=== PATIENT | female | born 1965 | race Caucasian/White ===

== ENCOUNTER 2018-09-07 09:50 | Inpatient (IN) ==
--- NOTE | 2018-09-07 10:29 | ED ---
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 Mother said she felt warm. She is hypotensive and was given NS IVF for EVAC. Has been having cough and cold like symptoms. Denies any fever, chest pain, sob, n/v, abdominal pain, new focal weakness or numbness. Pt sleeps in a recliner. Related Data Home Medications Medication Instructions Recorded Confirmed aripiprazole 5 mg PO DAILY 09/07/18 09/07/18 deutetrabenazine [Austedo] 12 mg PO BID 09/07/18 09/07/18 sertraline 100 mg PO BID 09/07/18 09/07/18 Allergies Allergy/AdvReac Type Severity Reaction Status Date / Time No Known Allergies Allergy Verified 09/07/18 10:17 Review of Systems ROS: all other systems reviewed are negative [facility] Social History Social History Substance History: No History of Abuse Second Hand Smoke Exposure: No Smoking Status: Never smoker How Often Do You Have a Drink Containing Alcohol: Never Recent Travel in [facility] within the Last 8 Weeks: No Recent Out of Country Travel within the Last 8 Weeks: No Immunization History Tetanus Immunization: Unsure Exam Narrative Exam Narrative: GENERAL: 53yo F in mild distress. SKIN: Focused skin assessment warm/dry. HEAD: Atraumatic. Normocephalic. EYES: Pupils equal and round. No scleral icterus. Left eye with injected conjuntiva. ENT: No nasal bleeding or discharge. Mucous membranes pink and moist. NECK: Trachea midline. No JVD. CARDIOVASCULAR: Regular rate and rhythm. No murmur appreciated. RESPIRATORY: No accessory muscle use. Clear to auscultation. Breath sounds equal bilaterally. GASTROINTESTINAL: Abdomen soft, non-tender, nondistended. MUSCULOSKELETAL: No obvious deformities. No clubbing. No cyanosis. No edema. NEUROLOGICAL: Awake and alert. No obvious cranial nerve deficits. Normal muscle strength bilateral upper extremities. Lower extremity strength limited by Merlin's, not new. Sensation equal bilaterally. Course Initial Documented Vital Signs Temperature 100.1 F H 09/07/18 10:17 Pulse Rate 83 11/10/18 10:17 Respiratory Rate 16 09/07/18 10:17 Blood Pressure 87/61 L 09/07/18 10:17 Pulse Oximetry 93 L 09/07/18 10:17 Last Documented Vital Signs Temperature 99.1 F 09/08/18 04:00 Pulse Rate 58 L 09/08/18 06:21 Respiratory Rate 22 09/08/18 06:21 Blood Pressure 100/62 09/08/18 06:21 Pulse Oximetry 96 09/08/18 06:21 Medical Decision Making MDM Narrative Medical decision making narrative: 53yo F with Merlin's disease here with generalized weakness and tactile fever. Axillary temp was 100.1F. Pt is hypotensive and sepsis work up initiated. Labs reviewed, leukocytosis at 18, 000. H/H normal. Lactic acid normal at 1.6. Magnesium normal. BMP unremarkable. UA showed no leukocyte. +Squamous cell. CXR negative. BP was low even after IVF by EVAC. After two more liters of IVF, pt improved to 95/ 58. Pt is feeling a little better now. However, BP is still lower than normal for her after 3 liters of IVF so will sent blood cultures and observe her overnight. Will empirically cover her with antibiotics and admit her for sepsis without source. Discussed with Dr. Liriano's PA and accepted to his service. Medical Screen Exam Complete: Yes Emergency Medical Condition: Yes Differential Diagnosis Differential Diagnosis: Sepsis vs. dehydration vs. pneumonia vs. UTI Lab Data Result diagrams: 09/08/18 05:31 09/08/18 05:31 Lab Results 09/07/18 09/07/18 09/07/18 Range/Units 10:30 10:30 10:30 CBC w Diff Auto diff final WBC 18.0 H (4.0-11.0) th/mm3 RBC 4.49 (4.00-5.30) mil/mm3 Hgb 12.6 (11.6-15.3) gm/dL Hct 38.2 (35.0-46.0) % MCV 85.0 (80.0-100.0) fL MCH 28.1 (27.0-34.0) pg MCHC 33.1 (32.0-36.0) % RDW 14.8 (11.6-17.2) % Plt Count 208 (150-450) th/mm3 MPV 8.9 (7.0-11.0) fL Neut % (Auto) 95.9 H (16.0-70.0) % Lymph % (Auto) 2.1 L (9.0-44.0) % [place] % (Auto) 1.0 (0.0-8.0) % Eos % (Auto) 0.3 (0.0-4.0) % Baso % (Auto) 0.7 (0.0-2.0) % Neut # (Auto) 17.2 H (1.8-7.7) th/mm3 Lymph # (Auto) 0.4 L (1.0-4.8) th/mm3 [place] # (Auto) 0.2 (0.0-0.9) th/mm3 Eos # (Auto) 0.1 (0.0-0.4) th/mm3 Baso # (Auto) 0.1 (0.0-0.2) th/mm3 WBC Differential . Differential Comment . PT 11.4 (9.8-11.6) sec INR 1.1 Ratio APTT 24.6 (23.4-31.7) sec Sodium 139 (136-145) meq/L Potassium 3.8 (3.5-5.1) meq/L Chloride 106 (98-107) meq/L Carbon Dioxide 24.3 (21.0-32.0) meq/L Anion Gap 9 (5-15) meq/L BUN 16 (7-18) mg/dL Creatinine 0.84 (0.50-1.00) mg/dL Estimated GFR 71 L (>89) mL/min Random Glucose 121 H (74-106) mg/dL Lactic Acid (0.4-2.0) mmol/L Calcium 8.2 L (8.5-10.1) mg/dL Magnesium 1.9 (1.5-2.5) mg/dL Total Bilirubin (0.2-1.0) mg/dL Direct Bilirubin (0.0-0.2) mg/dL Indirect Bilirubin (0.0-0.8) mg/dL AST (15-37) U/L ALT (10-53) U/L Alkaline Phosphatase (45-117) U/L Total Creatine Kinase (26-192) U/L Troponin I (0.02-0.05) ng/mL Total Protein (6.4-8.2) g/dL Albumin (3.4-5.0) g/dL Urine Color (Yellw/Straw) Urine Clarity (Clear) Urine pH (5.0-8.5) Ur Specific [place] (1.002-1.035) Urine Protein (Neg-Trace) mg/dL Urine Glucose (UA) (Negative) mg/dL Urine Ketones (Negative) mg/dL Urine Occult Blood (Negative) Urine Nitrate (Negative) Urine Bilirubin (Negative) Urine Urobilinogen (Less than 2) mg/dL Ur Leukocyte Esterase (Negative) Ur Squamous Epith Cells (0-5) /hpf Urine Mucus (Occasional) /lpf Micro UA Comment Ur Microscopic Review Urine Culture Comments 09/07/18 09/07/18 09/07/18 Range/Units 10:30 11:56 15:03 CBC w Diff WBC (4.0-11.0) th/mm3 RBC (4.00-5.30) mil/mm3 Hgb (11.6-15.3) gm/dL Hct (35.0-46.0) % MCV (80.0-100.0) fL MCH (27.0-34.0) pg MCHC (32.0-36.0) % RDW (11.6-17.2) % Plt Count (150-450) th/mm3 MPV (7.0-11.0) fL Neut % (Auto) (16.0-70.0) % Lymph % (Auto) (9.0-44.0) % [place] % (Auto) (0.0-8.0) % Eos % (Auto) (0.0-4.0) % Baso % (Auto) (0.0-2.0) % Neut # (Auto) (1.8-7.7) th/mm3 Lymph # (Auto) (1.0-4.8) th/mm3 [place] # (Auto) (0.0-0.9) th/mm3 Eos # (Auto) (0.0-0.4) th/mm3 Baso # (Auto) (0.0-0.2) th/mm3 WBC Differential Differential Comment PT (9.8-11.6) sec INR Ratio APTT (23.4-31.7) sec Sodium (136-145) meq/L Potassium (3.5-5.1) meq/L Chloride (98-107) meq/L Carbon Dioxide (21.0-32.0) meq/L Anion Gap (5-15) meq/L BUN (7-18) mg/dL Creatinine (0.50-1.00) mg/dL Estimated GFR (>89) mL/min Random Glucose (74-106) mg/dL Lactic Acid 1.6 (0.4-2.0) mmol/L Calcium (8.5-10.1) mg/dL Magnesium (1.5-2.5) mg/dL Total Bilirubin 0.6 (0.2-1.0) mg/dL Direct Bilirubin 0.1 (0.0-0.2) mg/dL Indirect Bilirubin 0.5 (0.0-0.8) mg/dL AST 8 L (15-37) U/L ALT 15 (10-53) U/L Alkaline Phosphatase 53 (45-117) U/L Total Creatine Kinase 31 (26-192) U/L Troponin I Less than 0.02 L (0.02-0.05) ng/mL Total Protein 6.2 L (6.4-8.2) g/dL Albumin 2.7 L (3.4-5.0) g/dL Urine Color Yellow (Yellw/Straw) Urine Clarity Slightly cloudy (Clear) Urine pH 6.0 (5.0-8.5) Ur Specific [place] 1.025 (1.002-1.035) Urine Protein Negative (Neg-Trace) mg/dL Urine Glucose (UA) Negative (Negative) mg/dL Urine Ketones Negative (Negative) mg/dL Urine Occult Blood Negative (Negative) Urine Nitrate Negative (Negative) Urine Bilirubin Negative (Negative) Urine Urobilinogen 0.2 (Less than 2) mg/dL Ur Leukocyte Esterase Negative (Negative) Ur Squamous Epith Cells 6-10 H (0-5) /hpf Urine Mucus Many H (Occasional) /lpf Micro UA Comment Culture not ind Ur Microscopic Review Microscopic reviewed Urine Culture Comments Culture not ind 09/07/18 09/08/18 09/08/18 Range/Units 20:35 02:15 05:31 CBC w Diff Auto diff final WBC 10.6 (4.0-11.0) th/mm3 RBC 3.91 L (4.00-5.30) mil/mm3 Hgb 10.9 L (11.6-15.3) gm/dL Hct 33.0 L (35.0-46.0) % MCV 84.6 (80.0-100.0) fL MCH 27.9 (27.0-34.0) pg MCHC 33.0 (32.0-36.0) % RDW 15.2 (11.6-17.2) % Plt Count 156 (150-450) th/mm3 MPV 8.7 (7.0-11.0) fL Neut % (Auto) 82.0 H (16.0-70.0) % Lymph % (Auto) 11.4 (9.0-44.0) % [place] % (Auto) 4.4 (0.0-8.0) % Eos % (Auto) 1.9 (0.0-4.0) % Baso % (Auto) 0.3 (0.0-2.0) % Neut # (Auto) 8.6 H (1.8-7.7) th/mm3 Lymph # (Auto) 1.2 (1.0-4.8) th/mm3 [place] # (Auto) 0.5 (0.0-0.9) th/mm3 Eos # (Auto) 0.2 (0.0-0.4) th/mm3 Baso # (Auto) 0.0 (0.0-0.2) th/mm3 WBC Differential . Differential Comment . PT (9.8-11.6) sec INR Ratio APTT (23.4-31.7) sec Sodium (136-145) meq/L Potassium (3.5-5.1) meq/L Chloride (98-107) meq/L Carbon Dioxide (21.0-32.0) meq/L Anion Gap (5-15) meq/L BUN (7-18) mg/dL Creatinine (0.50-1.00) mg/dL Estimated GFR (>89) mL/min Random Glucose (74-106) mg/dL Lactic Acid (0.4-2.0) mmol/L Calcium (8.5-10.1) mg/dL Magnesium (1.5-2.5) mg/dL Total Bilirubin (0.2-1.0) mg/dL Direct Bilirubin (0.0-0.2) mg/dL Indirect Bilirubin (0.0-0.8) mg/dL AST (15-37) U/L ALT (10-53) U/L Alkaline Phosphatase (45-117) U/L Total Creatine Kinase 39 42 (26-192) U/L Troponin I Less than 0.02 L Less than 0.02 L (0.02-0.05) ng/mL Total Protein (6.4-8.2) g/dL Albumin (3.4-5.0) g/dL Urine Color (Yellw/Straw) Urine Clarity (Clear) Urine pH (5.0-8.5) Ur Specific [place] (1.002-1.035) Urine Protein (Neg-Trace) mg/dL Urine Glucose (UA) (Negative) mg/dL Urine Ketones (Negative) mg/dL Urine Occult Blood (Negative) Urine Nitrate (Negative) Urine Bilirubin (Negative) Urine Urobilinogen (Less than 2) mg/dL Ur Leukocyte Esterase (Negative) Ur Squamous Epith Cells (0-5) /hpf Urine Mucus (Occasional) /lpf Micro UA Comment Ur Microscopic Review Urine Culture Comments 09/08/18 Range/Units 05:31 CBC w Diff WBC (4.0-11.0) th/mm3 RBC (4.00-5.30) mil/mm3 Hgb (11.6-15.3) gm/dL Hct (35.0-46.0) % MCV (80.0-100.0) fL MCH (27.0-34.0) pg MCHC (32.0-36.0) % RDW (11.6-17.2) % Plt Count (150-450) th/mm3 MPV (7.0-11.0) fL Neut % (Auto) (16.0-70.0) % Lymph % (Auto) (9.0-44.0) % [place] % (Auto) (0.0-8.0) % Eos % (Auto) (0.0-4.0) % Baso % (Auto) (0.0-2.0) % Neut # (Auto) (1.8-7.7) th/mm3 Lymph # (Auto) (1.0-4.8) th/mm3 [place] # (Auto) (0.0-0.9) th/mm3 Eos # (Auto) (0.0-0.4) th/mm3 Baso # (Auto) (0.0-0.2) th/mm3 WBC Differential Differential Comment PT (9.8-11.6) sec INR Ratio APTT (23.4-31.7) sec Sodium 142 (136-145) meq/L Potassium 3.4 L (3.5-5.1) meq/L Chloride 113 H (98-107) meq/L Carbon Dioxide 21.9 (21.0-32.0) meq/L Anion Gap 7 (5-15) meq/L BUN 9 (7-18) mg/dL Creatinine 0.67 (0.50-1.00) mg/dL Estimated GFR Greater than 89 (>89) mL/min Random Glucose 100 (74-106) mg/dL Lactic Acid (0.4-2.0) mmol/L Calcium 7.5 L (8.5-10.1) mg/dL Magnesium (1.5-2.5) mg/dL Total Bilirubin (0.2-1.0) mg/dL Direct Bilirubin (0.0-0.2) mg/dL Indirect Bilirubin (0.0-0.8) mg/dL AST (15-37) U/L ALT (10-53) U/L Alkaline Phosphatase (45-117) U/L Total Creatine Kinase (26-192) U/L Troponin I (0.02-0.05) ng/mL Total Protein (6.4-8.2) g/dL Albumin (3.4-5.0) g/dL Urine Color (Yellw/Straw) Urine Clarity (Clear) Urine pH (5.0-8.5) Ur Specific [place] (1.002-1.035) Urine Protein (Neg-Trace) mg/dL Urine Glucose (UA) (Negative) mg/dL Urine Ketones (Negative) mg/dL Urine Occult Blood (Negative) Urine Nitrate (Negative) Urine Bilirubin (Negative) Urine Urobilinogen (Less than 2) mg/dL Ur Leukocyte Esterase (Negative) Ur Squamous Epith Cells (0-5) /hpf Urine Mucus (Occasional) /lpf Micro UA Comment Ur Microscopic Review Urine Culture Comments Imaging Data Radiologist's impression: Chest X-Ray 09/07/18 10:25 CONCLUSION: Negative examination. ECG Data EKG Prior to Arrival: No Attestation: I personally reviewed and interpreted this ECG as follows: Interpretation: NSR 79bpm. Normal axis. SC interval 136ms. No significant ST elevation or depression. Discharge Plan Discharge Disposition Patient Disposition: 30 Still Patient Discharge Details Diagnosis: Sepsis Physicians Team ED Provider: Risa Quintero Primary Care Provider: Shari Jay Attending Provider: Kenyatta Liriano Status ED Status: Left Department Discharge Information Discharge Date/Time: 09/07/18 16:25
[2018-09-07] MEDS ORDERED: Sod Chloride 0.9% Inj 1,000 ML IV.SIG SCH ×2 (10:30→11:30)
--- NOTE | 2018-09-07 10:43 | XR ---
EXAM DATE: 09/07/2018 10:40 AM EST AGE/SEX: 53 years / Female INDICATIONS: Fever, cough CLINICAL DATA: This is the patient's initial encounter. Patient reports that signs and symptoms have been present for 1 day and indicates a pain score of 0/10. MEDICAL/SURGICAL HISTORY: . adarsh's disease None. COMPARISON: No prior exams available for comparison. FINDINGS: A single AP view of the chest demonstrates the lungs to be symmetrically aerated without evidence of mass, infiltrate or effusion. The cardiomediastinal contours are unremarkable. Osseous structures a re intact. CONCLUSION: Negative examination. Electronically signed by: Liam Herrera MD 09/07/2018 10:42 AM EST
[2018-09-07 10:45] LABS: Baso # (Auto) 0.1 th/mm3 (0.0-0.2); Baso % (Auto) 0.7 % (0.0-2.0); Eos # (Auto) 0.1 th/mm3 (0.0-0.4); Eos % (Auto) 0.3 % (0.0-4.0); Hematocrit 38.2 % (35.0-46.0); Hemoglobin 12.6 gm/dL (11.6-15.3); Lymph # (Auto) 0.4 th/mm3 (1.0-4.8); Lymph % (Auto) 2.1 % (9.0-44.0); Mean Corpuscular HGB Conc 33.1 % (32.0-36.0); Mean Corpuscular Hemoglobin 28.1 pg (27.0-34.0); Mean Platelet Volume 8.9 fL (7.0-11.0); Mono # (Auto) 0.2 th/mm3 (0.0-0.9); Neut # (Auto) 17.2 th/mm3 (1.8-7.7); Neut % (Auto) 95.9 % (16.0-70.0); Platelet Count 208 th/mm3 (150-450); Red Blood Count 4.49 mil/mm3 (4.00-5.30); Red Cell Distribution Width 14.8 % (11.6-17.2)
[2018-09-07 10:52] LABS: Potassium 3.8 meq/L (3.5-5.1)
[2018-09-07 10:55] LABS: Calcium 8.2 mg/dL (8.5-10.1); Carbon Dioxide 24.3 meq/L (21.0-32.0); Magnesium 1.9 mg/dL (1.5-2.5)
[2018-09-07 10:57] LABS: Activated Partial Thrombo Time 24.6 sec (23.4-31.7); INR 1.1 Ratio; Prothrombin Time 11.4 sec (9.8-11.6)
[2018-09-07 12:15] LABS: Bilirubin,Urine Negative (Negative); Clarity,Urine Slightly Cloudy (Clear); Color,Urine Yellow (Yellw/Straw); Glucose,Urine (UA) Negative (Negative); Leukocyte Esterase,Urine Negative (Negative); Nitrite,Urine Negative (Negative); Specific Gravity,Urine 1.025 (1.002-1.035); Urobilinogen,Urine 0.2 mg/dL (Less than 2)
[2018-09-07 12:42] LABS: Mucus,Urine Many /lpf (Occasional)
--- NOTE | 2018-09-07 13:04 | ECG ---
Date Performed: 09/07/2018 Time Performed: 10:55:06 PTAGE: 53 years EKG: Sinus rhythm NONSPECIFIC T-WAVE ABNORMALITY BORDERLINE ECG NO PREVIOUS TRACING DOCTOR: Nam Summers Interpretating Date/Time 09/07/2018 13:02:39
[2018-09-07] MEDS ORDERED: Piperacil/Tazo 2.25 GM Premix 50 ML IV.SIG ONE (13:33)
[2018-09-07] MEDS ORDERED: Vancomycin Inj 1,000 MG in Sodium Chlor 0.9% Inj 250 ML IV.SIG ONE (13:33)
[2018-09-07] MEDS ORDERED: Acetaminophen 325 MG Tablet PO PRN (14:11)
[2018-09-07] MEDS ORDERED: Bisacodyl 10 MG Supp RECTAL PRN (14:11)
[2018-09-07] MEDS: Sod Chloride 0.9% Inj 1,000 ML IV.CONT SCH (15:01)
[2018-09-07 15:36] LABS: Albumin 2.7 g/dL (3.4-5.0)
[2018-09-07 15:39] LABS: Alanine Aminotransferase 15 U/L (10-53)
[2018-09-07 15:40] LABS: Aspartate Aminotransferase 8 U/L (15-37)
[2018-09-07 15:41] LABS: Total Protein 6.2 g/dL (6.4-8.2)
[2018-09-07 15:42] LABS: Alkaline Phosphatase 53 U/L (45-117)
[2018-09-07 15:57] LABS: Creatine Kinase 31 U/L (26-192)
--- NOTE | 2018-09-07 17:04 | P.HP ---
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 Patient is taken care of by her mother and stepfather and they went to check on her today and she was bundled up in a blanket and when they got her out of the blanket they noticed that she was very hot. They took her temperature noticed that she had a fever. They were concerned because in March the patient has similar symptoms and started having significant nausea, vomiting and sepsis. So they called 911 and the patient was brought to the hospital for evaluation. Patient had workup done and found to have a temperature of 100.1, leukocytosis of 18,000. Severe hypotension requiring 3 L of normal saline bolus to improve blood pressure. So far workup did not indicate any source of infection. Patient meets criteria for systemic inflammatory response syndrome. Patient has been exposed to people that have had upper respiratory infections. She has had a cough for the last couple days. There is been no phlegm production, diarrhea, difficulty urination. Patient will be placed in observation for continued monitoring. - Diagnosis (1) Systemic inflammatory response syndrome (2) Febrile illness (3) Leukocytosis Review of Systems All other systems reviewed negative except as stated in HPI Constitutional: Reports fever(s) PMFSH - History History Provided By: Family Member - Medical History Medical History: Medical History (Last Reviewed 09/07/18 @ 16:56 by SAMMIE Jorge) History of Andrews's disease - Surgical History Surgical History: Surgical History (Last Reviewed 09/07/18 @ 16:56 by SAMMIE Jorge) History of arthroscopy of right knee - Family History Family History: Family History (Last Updated 09/07/18 @ 16:56 by SAMMIE Jorge) Father Family history of [place]'s disease Mother Family history of heart disease - Tobacco History Second Hand Smoke Exposure: No Smoking Status: Never smoker - Alcohol History How Often Do You Have a Drink Containing Alcohol: Never - Substance Use History Substance History: No History of Abuse - Travel History Recent Travel in the [place] Within the Last 8 Weeks: No Recent Travel Out of the Country Within the Last 8 Weeks: No - Immunization History Tetanus Immunization: Unsure Hx Influenza Vaccine This Season: Yes Medications and Allergies Active Medications: Active Medications Acetaminophen (Tylenol) 650 mg PO Q4H PRN PRN Reason: Temp > 100.4 Al Hydroxide/Mg Hydroxide (Milk Of Magnesia Liq) 30 ml PO Q12H PRN PRN Reason: Mild Constipation Aripiprazole (Abilify) 5 mg PO DAILY JOHANNE Bisacodyl (Dulcolax Supp) 10 mg RECTAL DAILY PRN PRN Reason: SEVERE CONSITIPATION Sodium Chloride (Ns Inj) 1,000 mls @ 100 mls/hr IV.CONT .Q10H [facility] Last Admin: 09/07/18 15:01 Dose: 100 mls/hr Lactulose (Lactulose Liq) 30 ml PO DAILY PRN PRN Reason: SEVERE CONSITIPATION Ondansetron HCl (Zofran Inj) 4 mg IV.PUSH Q6H PRN PRN Reason: NAUSEA OR VOMITING Pt Own: [place] 12mg 0 each PO BID [facility] Senna/Docusate Sodium (Serena-Colace) 1 tab PO BID [facility] Sennosides (Senokot) 17.2 mg PO Q12H PRN PRN Reason: Moderate Constipation Sertraline HCl (Zoloft) 100 mg PO BID [facility] Temazepam (Restoril) 15 mg PO HS PRN PRN Reason: INSOMNIA Allergies Allergy/AdvReac Type Severity Reaction Status Date / Time No Known Allergies Allergy Verified 09/07/18 10:17 Home Medications Medication Instructions Recorded Confirmed Type aripiprazole 5 mg PO DAILY 09/07/18 09/07/18 History deutetrabenazine [Austedo] 12 mg PO BID 09/07/18 09/07/18 History sertraline 100 mg PO BID 09/07/18 09/07/18 History Exam Vital signs: Vital Signs 09/07/18 10:17 09/07/18 11:04 09/07/18 11:28 Temperature 100.1 F H 99.4 F Pulse Rate 83 79 84 Respiratory Rate 16 20 20 Blood Pressure 87/61 L 83/55 L 80/55 L Pulse Oximetry 93 L 94 L 95 09/07/18 11:46 09/07/18 12:55 09/07/18 15:04 Temperature Pulse Rate 87 82 79 Respiratory Rate 18 18 16 Blood Pressure 90/58 L 95/58 L 90/61 L Pulse Oximetry 96 96 95 09/07/18 16:27 09/07/18 16:28 Temperature 99.2 F Pulse Rate 80 Respiratory Rate 25 H Blood Pressure 88/46 L Pulse Oximetry Intake & Output 09/06/18 09/07/18 09/07/18 18:59 06:59 18:59 Intake Total 2049 Balance 2049 Weight 67 kg Intake: IV 2049 Zosyn 2.25 GM Premix 50 ML @ 50 / 50 100 mls/hr IV.SIG ONCE ONE Rx#: [id number] NS Inj 1,000 ML @ 1000 mls/hr 1999 IV.SIG BOLUS JOHANNE Rx#:[id number] Narrative: GENERAL: Well-developed, well-nourished, in no acute distress. alert and quite pleasant female HEENT: Head is normocephalic without any lesions or masses noted. Facial features are symmetric. Eyes: Pupils equal round reactive to light. Extraocular muscles are intact. Conjunctivae were clear. Oropharyngeal: Pharynx without any erythema edema. Tongue is midline without deviation. Buccal mucosa is moist without any masses or lesions NECK: Supple without any masses. Trachea midline no deviation. No JVD, no bruits are appreciated CARDIAC: Regular rhythm, regular rate. S1/S2 are heard. No murmurs gallops or rubs. LUNGS: Clear to auscultation bilaterally. No wheeze, rhonchi or rales. No use of accessory muscles on inspiration or expiration. ABDOMEN: Soft, nontender. Nondistended. Bowel sounds heard in all 4 quadrants. No organomegaly or masses. Negative rebound, negative guarding EXTREMITIES: No edema, pulses are equal bilaterally. No cyanosis or clubbing NEUROLOGY: Mood and affect appear appropriate. Cranial nerves II through XII grossly intact. Muscle strength 5/5 in upper and lower extremities bilaterally. Deep tendon reflexes are 2+ in upper and lower extremities bilaterally. Results - Labs CBC & Chem 7: 09/07/18 10:30 09/07/18 10:30 Labs: Laboratory Results - last 24 hr 09/07/18 09/07/18 09/07/18 10:30 10:30 10:30 CBC w Diff Auto diff final WBC 18.0 H RBC 4.49 Hgb 12.6 Hct 38.2 MCV 85.0 MCH 28.1 MCHC 33.1 RDW 14.8 Plt Count 208 MPV 8.9 Neut % (Auto) 95.9 H Lymph % (Auto) 2.1 L [place] % (Auto) 1.0 Eos % (Auto) 0.3 Baso % (Auto) 0.7 Neut # (Auto) 17.2 H Lymph # (Auto) 0.4 L [place] # (Auto) 0.2 Eos # (Auto) 0.1 Baso # (Auto) 0.1 WBC Differential . Differential Comment . PT 11.4 INR 1.1 APTT 24.6 Sodium 139 Potassium 3.8 Chloride 106 Carbon Dioxide 24.3 Anion Gap 9 BUN 16 Creatinine 0.84 Estimated GFR 71 L Random Glucose 121 H Lactic Acid Calcium 8.2 L Magnesium 1.9 Total Bilirubin Direct Bilirubin Indirect Bilirubin AST ALT Alkaline Phosphatase Total Creatine Kinase Troponin I Total Protein Albumin Urine Color Urine Clarity Urine pH Ur Specific [place] Urine Protein Urine Glucose (UA) Urine Ketones Urine Occult Blood Urine Nitrate Urine Bilirubin Urine Urobilinogen Ur Leukocyte Esterase Ur Squamous Epith Cells Urine Mucus Micro UA Comment Ur Microscopic Review Urine Culture Comments 09/07/18 09/07/18 09/07/18 10:30 11:56 15:03 CBC w Diff WBC RBC Hgb Hct MCV MCH MCHC RDW Plt Count MPV Neut % (Auto) Lymph % (Auto) [place] % (Auto) Eos % (Auto) Baso % (Auto) Neut # (Auto) Lymph # (Auto) [place] # (Auto) Eos # (Auto) Baso # (Auto) WBC Differential Differential Comment PT INR APTT Sodium Potassium Chloride Carbon Dioxide Anion Gap BUN Creatinine Estimated GFR Random Glucose Lactic Acid 1.6 Calcium Magnesium Total Bilirubin 0.6 Direct Bilirubin 0.1 Indirect Bilirubin 0.5 AST 8 L ALT 15 Alkaline Phosphatase 53 Total Creatine Kinase 31 Troponin I Less than 0.02 L Total Protein 6.2 L Albumin 2.7 L Urine Color Yellow Urine Clarity Slightly cloudy Urine pH 6.0 Ur Specific [place] 1.025 Urine Protein Negative Urine Glucose (UA) Negative Urine Ketones Negative Urine Occult Blood Negative Urine Nitrate Negative Urine Bilirubin Negative Urine Urobilinogen 0.2 Ur Leukocyte Esterase Negative Ur Squamous Epith Cells 6-10 H Urine Mucus Many H Micro UA Comment Culture not ind Ur Microscopic Review Microscopic reviewed Urine Culture Comments Culture not ind - Imaging Impressions Chest X-Ray 09/07/18 10:25 CONCLUSION: Negative examination. Caprini VTE Risk Assessment Caprini VTE Risk Assessment: Moderate/High Risk (score >= 2) Caprini Risk Assessment Model: Point Value = 1 Point Value = 2 Point Value = 3 Point Value = 5 Age 41-60 Minor surgery BMI > 25 kg/m2 Swollen legs Varicose veins or History of unexplained or recurrent spontaneous Oral contraceptives or hormone replacement Sepsis (< 1 month) Serious lung disease, including pneumonia (< 1 month) Abnormal pulmonary function Acute myocardial infarction Congestive heart failure (< 1 month) History of inflammatory bowel disease Medical patient at bed rest Age 61-74 Arthroscopic surgery Major open surgery (> 45 min) Laparoscopic surgery (> 45 min) Malignancy Confined to bed (> 72 hours) Immobilizing plaster cast Central venous access Age >= 75 History of VTE Family history of VTE Factor V Leiden Prothrombin [id number] Lupus anticoagulant Anticardiolipin antibodies Elevated serum homocysteine Heparin-induced thrombocytopenia Other congenital or acquired thrombophilia Stroke (< 1 month) Elective arthroplasty Hip, pelvis, or leg fracture Acute spinal cord injury (< 1 month) Prophylaxis Regimen: Total Risk Factor Score Risk Level Prophylaxis Regimen 0-1 Low Early ambulation 2 Moderate Order ONE of the following: *Sequential Compression Device (SCD) *Heparin 5000 units SQ BID 3-4 Higher Order ONE of the following medications: *Heparin 5000 units SQ TID *Enoxaparin/Lovenox 40 mg SQ daily (WT < 150 kg, CrCl > 30 mL/min) *Enoxaparin/Lovenox 30 mg SQ daily (WT < 150 kg, CrCl > 10-29 mL/min) *Enoxaparin/Lovenox 30 mg SQ BID (WT < 150 kg, CrCl > 30 mL/min) AND/OR *Sequential Compression Device (SCD) 5 or more Highest Order ONE of the following medications: *Heparin 5000 units SQ TID (Preferred with Epidurals) *Enoxaparin/Lovenox 40 mg SQ daily (WT < 150 kg, CrCl > 30 mL/min) *Enoxaparin/Lovenox 30 mg SQ daily (WT < 150 kg, CrCl > 10-29 mL/min) *Enoxaparin/Lovenox 30 mg SQ BID (WT < 150 kg, CrCl > 30 mL/min) AND *Sequential Compression Device (SCD) Assessment and Plan - Assessment (1) Systemic inflammatory response syndrome Code(s): R65.10 - Systemic inflammatory response syndrome (SIRS) of non- infectious origin without acute organ dysfunction Status: Acute (2) Febrile illness Code(s): R50.9 - Fever, unspecified Status: Acute (3) Leukocytosis Code(s): D72.829 - Elevated white blood cell count, unspecified Status: Acute - Plan Systemic inflammatory response syndrome -Patient presented with fever, leukocytosis, hypotension. No infectious source has been identified -Chest x-ray is clear, urinalysis is unremarkable, influenza testing is negative -Blood cultures are pending -Patient started on empirical antibiotics include vancomycin and Zosyn -Continue monitor for any infection Hypotension -Could be secondary to septic shock, however nose infection source has been identified -Status post 3 L normal saline boluses for blood pressure management -Continue monitor blood pressure and maintain map greater than 65 -May need to start Levophed for blood pressure management if needed DVT prevention -Sequential compression devices
[2018-09-07] MEDS ORDERED: Vancomycin Consult Pharmacy 1 EACH OTHER SCH (18:00)
[2018-09-07] MEDS: Senna/Docusate Sodium 8.6/50 MG Tablet PO SCH (20:30)
[2018-09-07] MEDS: Sertraline 100 MG Tablet PO SCH (20:30)
[2018-09-07] MEDS: AUSTEDO 12 MG PO SCH (20:31)
[2018-09-07] MEDS ORDERED: AUSTEDO 12 MG PO SCH (21:00)
[2018-09-07] MEDS ORDERED: Temazepam 15 MG Capsule PO PRN (21:00)
--- NOTE | 2018-09-07 21:08 | ECG ---
Date Performed: 09/07/2018 Time Performed: 20:30:32 PTAGE: 53 years EKG: Sinus rhythm NONSPECIFIC T-WAVE ABNORMALITY BORDERLINE ECG WARNING: DATA QUALITY MAY AFFECT INTERPRETATION No sig nificant change from prior electrocardiogram. PREVIOUS TRACING : 09/07/2018 15.09 DOCTOR: Nam Summers Interpretating Date/Time 09/07/2018 21:08:10
[2018-09-07] MEDS: Piperacil/Tazo 3.375 GM Premix 50 ML IV.SIG SCH (21:13)
--- NOTE | 2018-09-07 21:15 | ECG ---
Date Performed: 09/07/2018 Time Performed: 15:09:01 PTAGE: 53 years EKG: Sinus rhythm NONSPECIFIC T-WAVE ABNORMALITY BORDERLINE ECG No significant change from prior electrocardiogram. PREVIOUS TRACING : 09/07/2018 10.55 DOCTOR: Nam Summers Interpretating Date/Time 09/07/2018 21:13:33
[2018-09-07 21:19] LABS: Creatine Kinase 39 U/L (26-192)
[2018-09-08] MEDS: Piperacil/Tazo 3.375 GM Premix 50 ML IV.SIG SCH ×4 (02:04→20:05)
[2018-09-08] MEDS: Sod Chloride 0.9% Inj 1,000 ML IV.CONT SCH ×2 (02:04→12:45)
[2018-09-08 03:14] LABS: Creatine Kinase 42 U/L (26-192)
[2018-09-08] MEDS ORDERED: Sod Chloride 0.9% Inj 1,000 ML IV.SIG SCH (04:03)
[2018-09-08] MEDS: Vancomycin Inj 1,000 MG in Sodium Chlor 0.9% Inj 250 ML IV.SIG SCH ×2 (04:16→16:03)
[2018-09-08 05:52] LABS: Baso % (Auto) 0.3 % (0.0-2.0); Eos # (Auto) 0.2 th/mm3 (0.0-0.4); Eos % (Auto) 1.9 % (0.0-4.0); Hemoglobin 10.9 gm/dL (11.6-15.3); Lymph # (Auto) 1.2 th/mm3 (1.0-4.8); Lymph % (Auto) 11.4 % (9.0-44.0); Mean Corpuscular Hemoglobin 27.9 pg (27.0-34.0); Mean Corpuscular Volume 84.6 fL (80.0-100.0); Mean Platelet Volume 8.7 fL (7.0-11.0); Mono # (Auto) 0.5 th/mm3 (0.0-0.9); Mono % (Auto) 4.4 % (0.0-8.0); Neut # (Auto) 8.6 th/mm3 (1.8-7.7); Platelet Count 156 th/mm3 (150-450); Red Blood Count 3.91 mil/mm3 (4.00-5.30); Red Cell Distribution Width 15.2 % (11.6-17.2); White Blood Count 10.6 th/mm3 (4.0-11.0)
[2018-09-08 06:04] LABS: Chloride 113 meq/L (98-107); Potassium 3.4 meq/L (3.5-5.1); Sodium 142 meq/L (136-145)
[2018-09-08 06:06] LABS: Anion Gap 7 meq/L (5-15); Blood Urea Nitrogen 9 mg/dL (7-18); Calcium 7.5 mg/dL (8.5-10.1); Carbon Dioxide 21.9 meq/L (21.0-32.0); Glucose,Random 100 mg/dL (74-106)
[2018-09-08 06:10] LABS: Glomerular Filtration Rate Greater Than 89 mL/min (>89)
--- NOTE | 2018-09-08 06:57 | P.CONCC ---
History of Present Illness Service: Critical Care Medicine Consult date: 09/08/18 Requesting Physician: Andrew Cottrell Reason for Consult: persistent hypotension Primary Care Provider: Shari Jay MD Chief Complaint: Fever History of Present Illness: This is a 53yF with history of Jewell's Chorea who presented yesterday evening with fever, chills, cough and was admitted for sepsis, presumed secondary to tracheobronchitis. Despite significant iv fluid resuscitation, she remained persistently hypotensive and was placed on vasopressors. Critical care medicine is consulted to evaluate her hypotension. I woke her up from resting for my evaluation. due to her Jewell's her baseline speech is difficult to understand. she endorses cough, fever, chills. denies sputum production. denies nausea, vomiting, constipation, diarrhea, or abdominal pain. denies chest pain or shortness of breath. remainder of the ROS is negative. she does state she feels better this morning than yesterday. wbc decreasing this morning. influenza screen negative. Review of Systems All other systems reviewed negative except as stated in HPI PMFSH - History History Provided By: Patient, Medical Record - Medical History Medical History: Medical History (Last Reviewed 09/08/18 @ 06:47 by Colby Hoyos MD) History of Adarsh's disease - Surgical History Surgical History: Surgical History (Last Reviewed 09/08/18 @ 06:47 by Colby Hoyos MD) History of arthroscopy of right knee - Family History Family History: Family History (Last Reviewed 09/08/18 @ 06:47 by Colby Hoyos MD) Father Family history of Jewell's disease Mother Family history of heart disease - Social History I have reviewed the patient's Social History: Yes - Tobacco History Second Hand Smoke Exposure: No Tobacco Use In Past 30 Days: No Smoking Status: Never smoker - Alcohol History How Often Do You Have a Drink Containing Alcohol: Never - Substance Use History Substance History: No History of Abuse - Travel History Recent Travel in the [place] Within the Last 8 Weeks: No Recent Travel Out of the Country Within the Last 8 Weeks: No - Immunization History Tetanus Immunization: Unsure Hx Influenza Vaccine This Season: Yes Medications and Allergies Active Medications: Active Medications Acetaminophen (Tylenol) 650 mg PO Q4H PRN PRN Reason: Temp > 100.4 Al Hydroxide/Mg Hydroxide (Milk Of Magnesia Liq) 30 ml PO Q12H PRN PRN Reason: Mild Constipation Aripiprazole (Abilify) 5 mg PO DAILY [facility] Bisacodyl (Dulcolax Supp) 10 mg RECTAL DAILY PRN PRN Reason: SEVERE CONSITIPATION Sodium Chloride (Ns Inj) 1,000 mls @ 150 mls/hr IV.CONT .Q6H40M [facility] Stop: 09/08/18 10:14 Last Admin: 09/08/18 02:04 Dose: 100 mls/hr Pharmacy Profile Note (Vancomycin Consult Pharmacy) 0 mls @ 0 mls/hr OTHER UNSCH [facility] Piperacillin/Tazobactam/Dextrose (Zosyn 3.375 Gm Premix) 50 mls @ 100 mls/hr IV.SIG Q6H [facility] Last Infusion: 09/08/18 02:34 Dose: Infused Norepinephrine Bitartrate (Levophed-Dextrose 4 Mg/250 Ml Drip) 4 mg in 250 mls @ 7.5 mls/hr IV.SIG TITRATE PRN; Protocol PRN Reason: Per Protocol Last Titration: 09/08/18 04:50 Dose: 2 mcg/min, 7.5 mls/hr Vancomycin HCl 1,000 mg/ (Sodium Chloride) 250 mls @ 250 mls/hr IV.SIG Q12H [facility] Last Infusion: 09/08/18 05:27 Dose: Infused Lactulose (Lactulose Liq) 30 ml PO DAILY PRN PRN Reason: SEVERE CONSITIPATION Miscellaneous Information ([facility] Ordered Lab Info) 0 each OTHER ONCE ONE Stop: 09/09/18 02:46 Ondansetron HCl (Zofran Inj) 4 mg IV.PUSH Q6H PRN PRN Reason: NAUSEA OR VOMITING Pt Own: Austedo 12mg 0 each PO BID [facility] Last Admin: 09/07/18 20:31 Dose: 1 each Senna/Docusate Sodium (Serena-Colace) 1 tab PO BID [facility] Last Admin: 09/07/18 20:30 Dose: 1 tab Sennosides (Senokot) 17.2 mg PO Q12H PRN PRN Reason: Moderate Constipation Sertraline HCl (Zoloft) 100 mg PO BID [facility] Last Admin: 09/07/18 20:30 Dose: 100 mg Temazepam (Restoril) 15 mg PO HS PRN PRN Reason: INSOMNIA Terbutaline Sulfate (Brethine Inj) 1 mg SQ UNSCH PRN PRN Reason: For Extravasation Allergies Allergy/AdvReac Type Severity Reaction Status Date / Time No Known Allergies Allergy Verified 09/07/18 10:17 Home Medications Medication Instructions Recorded Confirmed Type aripiprazole 5 mg PO DAILY 09/07/18 09/07/18 History deutetrabenazine [Austedo] 12 mg PO BID 09/07/18 09/07/18 History sertraline 100 mg PO BID 09/07/18 09/07/18 History Physical Exam Vital signs: Vital Signs 09/07/18 10:17 09/07/18 11:04 09/07/18 11:28 Temperature 37.8 C H 37.4 C Pulse Rate 83 79 84 Respiratory Rate 16 20 20 Blood Pressure 87/61 L 83/55 L 80/55 L Pulse Oximetry 93 L 94 L 95 09/07/18 11:46 09/07/18 12:55 09/07/18 15:04 Temperature Pulse Rate 87 82 79 Respiratory Rate 18 18 16 Blood Pressure 90/58 L 95/58 L 90/61 L Pulse Oximetry 96 96 95 09/07/18 16:27 09/07/18 16:28 09/07/18 19:28 Temperature 37.3 C Pulse Rate 80 84 Respiratory Rate 25 H 21 Blood Pressure 88/46 L Pulse Oximetry 09/07/18 19:43 09/07/18 20:00 09/07/18 20:26 Temperature Pulse Rate 86 92 H 82 Respiratory Rate 22 27 H Blood Pressure 85/48 L 91/55 L Pulse Oximetry 96 96 09/07/18 21:00 09/07/18 21:36 09/07/18 22:05 Temperature Pulse Rate 96 H 90 86 Respiratory Rate 20 23 Blood Pressure 90/66 L 84/56 L Pulse Oximetry 96 96 09/08/18 00:00 09/08/18 01:00 09/08/18 01:50 Temperature 37.4 C Pulse Rate 76 68 70 Respiratory Rate 20 18 21 Blood Pressure 81/54 L 74/56 L 85/33 L Pulse Oximetry 96 96 09/08/18 01:57 09/08/18 02:01 09/08/18 02:07 Temperature Pulse Rate 70 74 76 Respiratory Rate 23 23 30 H Blood Pressure 81/57 L 85/56 L 83/59 L Pulse Oximetry 96 09/08/18 02:10 09/08/18 02:20 09/08/18 02:30 Temperature Pulse Rate 74 68 58 L Respiratory Rate 31 H 30 H 27 H Blood Pressure 84/55 L 83/54 L 107/59 L Pulse Oximetry 96 09/08/18 02:40 09/08/18 02:50 09/08/18 03:00 Temperature Pulse Rate 58 L 56 L Respiratory Rate 26 H 20 20 Blood Pressure 112/62 105/68 104/63 Pulse Oximetry 96 98 96 09/08/18 03:10 09/08/18 03:20 09/08/18 03:30 Temperature Pulse Rate 62 62 60 Respiratory Rate 19 19 21 Blood Pressure 111/62 106/64 110/61 Pulse Oximetry 96 96 96 09/08/18 03:50 09/08/18 04:00 09/08/18 04:10 Temperature 37.3 C Pulse Rate 62 60 68 Respiratory Rate 22 21 23 Blood Pressure 93/55 L 102/63 82/53 L Pulse Oximetry 96 96 96 09/08/18 04:20 09/08/18 04:21 09/08/18 04:30 Temperature Pulse Rate 76 78 70 Respiratory Rate 20 20 18 Blood Pressure 72/57 L 91/53 L 76/50 L Pulse Oximetry 96 96 95 09/08/18 04:37 09/08/18 04:40 09/08/18 04:50 Temperature Pulse Rate 70 66 70 Respiratory Rate 18 20 20 Blood Pressure 72/48 L 73/49 L 71/50 L Pulse Oximetry 96 09/08/18 04:56 09/08/18 05:00 09/08/18 05:10 Temperature Pulse Rate 40 L 64 56 L Respiratory Rate 18 24 21 Blood Pressure 95/45 L 108/46 L 105/63 Pulse Oximetry 96 96 96 09/08/18 05:20 09/08/18 05:30 09/08/18 05:40 Temperature Pulse Rate 60 58 L Respiratory Rate 20 23 Blood Pressure 86/57 L 74/53 L 86/58 L Pulse Oximetry 09/08/18 05:41 09/08/18 05:51 09/08/18 06:01 Temperature Pulse Rate 66 58 L 58 L Respiratory Rate 23 26 H 26 H Blood Pressure 108/56 L 116/57 L 116/68 Pulse Oximetry 96 09/08/18 06:11 09/08/18 06:21 Temperature Pulse Rate 56 L 58 L Respiratory Rate 22 22 Blood Pressure 120/62 100/62 Pulse Oximetry 96 96 Intake & Output 09/07/18 09/07/18 09/08/18 06:59 18:59 06:59 Intake Total 2049 2600 / 2600 Output Total 800 / 800 Balance 2049 1800 / 1800 Weight 67 kg 73 kg Intake: IV 2049 2600 / 2600 NS Inj 1,000 ML @ 150 mls/hr IV 1000 / 1000 .CONT .Q6H40M [facility] Rx#: [id number] Zosyn 2.25 GM Premix 50 ML @ 50 / 50 100 mls/hr IV.SIG ONCE ONE Rx#: [id number] Zosyn 3.375 GM Premix 50 ML @ 100 / 100 100 mls/hr IV.SIG Q6H [facility] Rx#: [id number] NS Inj 1,000 ML @ 1000 mls/hr 2000 / 2000 1000 / 1000 IV.SIG BOLUS [facility] Rx#:[id number] Vancomycin Inj 1,000 MG In NS 500 / 500 Inj 250 ML @ 250 mls/hr IV.SIG Q12H [facility] Rx#:[id number] Output: Urine 800 / 800 Other: Date of Last Bowel Movement 09/06/18 Weight On Admission 67.2 kg Narrative: gen: middle-aged female, lying in bed, resting. heent: nc. at. perrl. mucous membranes moist. neck: no jvd. trachea midline. chest: equal chest rise. unlabored. nc o2. cv: normal rate, regular rhythm. sinus. on norepinephrine at 2 mcg/min. abd: soft, nontender, nondistended. no guarding. extr: no edema. distal pulses 2+. neuro: RASS 0. awakens and follows commands. speech is difficult to understand, but baseline for patient. minimal chorea. Septic Shock Reassessment Septic shock perfusion: reassessment completed Assessment and Plan - Problem List (1) Systemic inflammatory response syndrome Code(s): R65.10 - Systemic inflammatory response syndrome (SIRS) of non- infectious origin without acute organ dysfunction Status: Acute (2) Febrile illness Code(s): R50.9 - Fever, unspecified Status: Acute (3) Leukocytosis Code(s): D72.829 - Elevated white blood cell count, unspecified Status: Acute - Assessment and Plan Plan: Assessment: 53yF with adarsh's chorea and septic shock, most likely secondary to tracheobronchitis. Suspect this is viral in origin, but agree with covering with antibiotics. agree with norepinephrine: wean as tolerated. keep in ICU. Septic Shock Tracheobronchitis Recommendations: - continue norepinephrine for goal map > 65 mmHg - continue NS mivf @ 150cc/hr - advance diet as tolerated - lactate normal - send sputum culture - send viral respiratory panel - OOB with PT - aggressive pulmonary toilet - continue vanc/zosyn empirically
[2018-09-08] MEDS ORDERED: Potassium Phosphate Inj 30 MMOL in Sodium Chlor 0.9% Inj 250 ML IV.SIG PRN (06:58)
[2018-09-08] MEDS ORDERED: Potassium Chlor 40 mEq Premix 40 MEQ/100 ML PIGGYBACK IV.SIG PRN ×2 (06:58)
[2018-09-08] MEDS ORDERED: Magnesium Sulfate Inj 2 GM in Sodium Chlor 0.9% Inj 96 ML IV.SIG PRN (06:58)
[2018-09-08] MEDS ORDERED: Magnesium Sulfate Inj 4 GM in Sodium Chlor 0.9% Inj 92 ML IV.SIG PRN (06:58)
[2018-09-08] MEDS ORDERED: Magnesium Oxide 400 MG Tablet PO PRN (06:58)
[2018-09-08] MEDS ORDERED: Sodium Phosphate Inj 30 MMOL in Sodium Chlor 0.9% Inj 250 ML IV.SIG PRN (06:58)
[2018-09-08] MEDS ORDERED: Potassium Chlor 20 mEq Premix 20 MEQ/100 ML PIGGYBACK IV.SIG PRN (06:58)
[2018-09-08] MEDS ORDERED: Potassium Phosphate 500 MG Soluble Tablet PO PRN ×2 (06:58)
[2018-09-08] MEDS ORDERED: Potassium Chloride 25 MEQ Effervescent Tablet PO PRN (06:58)
--- NOTE | 2018-09-08 07:08 | ECG ---
Date Performed: 09/08/2018 Time Performed: 02:14:22 PTAGE: 53 years EKG: Baseline artifact present PROBABLE Sinus rhythm WITH SHORT RI INTERVAL Nonspecific T wave changes BORDERLINE ECG No significant change from prior el ectrocardiogram. PREVIOUS TRACING : 09/07/2018 20.30 DOCTOR: Nam Summers Interpretating Date/Time 09/08/2018 07:06:13
[2018-09-08] MEDS: Senna/Docusate Sodium 8.6/50 MG Tablet PO SCH ×2 (08:42→20:32)
[2018-09-08] MEDS: Sertraline 100 MG Tablet PO SCH ×2 (08:42→20:32)
[2018-09-08] MEDS: ARIPiprazole 5 MG Tablet PO SCH (08:43)
[2018-09-08] MEDS: AUSTEDO 12 MG PO SCH ×2 (08:43→20:32)
[2018-09-08] MEDS: Potassium Chlor 20 mEq Premix 20 MEQ/100 ML PIGGYBACK IV.SIG PRN ×2 (10:04→12:10)
[2018-09-08] MEDS: Sod Chloride 0.9% Inj 1,000 ML IV.SIG SCH (23:39)
[2018-09-09] MEDS: Sod Chloride 0.9% Inj 1,000 ML IV.SIG SCH (00:40)
[2018-09-09] MEDS: Piperacil/Tazo 3.375 GM Premix 50 ML IV.SIG SCH ×4 (01:56→21:31)
[2018-09-09] MEDS ORDERED: VANCOMYCIN TROUGH OTHER ONE (02:45)
[2018-09-09] MEDS: Vancomycin Inj 1,000 MG in Sodium Chlor 0.9% Inj 250 ML IV.SIG SCH ×3 (03:28→21:53)
[2018-09-09 03:39] LABS: Hematocrit 32.1 % (35.0-46.0); Hemoglobin 10.3 gm/dL (11.6-15.3); Mean Corpuscular HGB Conc 32.2 % (32.0-36.0); Mean Corpuscular Hemoglobin 27.4 pg (27.0-34.0); Mean Corpuscular Volume 85.1 fL (80.0-100.0); Mean Platelet Volume 8.8 fL (7.0-11.0); Platelet Count 178 th/mm3 (150-450); Red Blood Count 3.77 mil/mm3 (4.00-5.30); Red Cell Distribution Width 15.6 % (11.6-17.2); White Blood Count 6.3 th/mm3 (4.0-11.0)
[2018-09-09 03:47] LABS: Chloride 116 meq/L (98-107); Potassium 3.4 meq/L (3.5-5.1); Sodium 144 meq/L (136-145)
[2018-09-09 03:49] LABS: Calcium 7.5 mg/dL (8.5-10.1)
[2018-09-09 03:50] LABS: Anion Gap 7 meq/L (5-15); Blood Urea Nitrogen 5 mg/dL (7-18); Carbon Dioxide 20.9 meq/L (21.0-32.0); Glucose,Random 91 mg/dL (74-106); Magnesium 1.8 mg/dL (1.5-2.5)
[2018-09-09 03:53] LABS: Glomerular Filtration Rate Greater Than 89 mL/min (>89)
[2018-09-09 03:54] LABS: Phosphorus 2.3 mg/dL (2.5-4.9)
[2018-09-09] MEDS: AUSTEDO 12 MG PO SCH ×2 (08:10→21:34)
[2018-09-09] MEDS: ARIPiprazole 5 MG Tablet PO SCH (08:11)
[2018-09-09] MEDS: Senna/Docusate Sodium 8.6/50 MG Tablet PO SCH ×2 (08:11→21:32)
[2018-09-09] MEDS: Sertraline 100 MG Tablet PO SCH ×2 (08:11→21:36)
[2018-09-09] MEDS ORDERED: Sod Chloride 0.9% Inj 1,000 ML IV.SIG ONE (13:10)
--- NOTE | 2018-09-09 13:14 | P.PNIM ---
Subjective Interval history: 53-year-old female who is seen and examined today in follow-up for systemic inflammatory response syndrome, hypotension. Patient still with low blood pressure which is what appears to be chronic in the patient, however she is required Levophed administration every morning at approximately 4 AM to maintain map greater than 65. Patient has had workup to evaluate for any source of infection. However no source has been identified. Patient has remained afebrile. Physical Exam Vital signs: Vital Signs 09/08/18 14:00 09/08/18 14:21 09/08/18 15:00 Temperature Pulse Rate 70 72 68 Respiratory Rate 28 H 29 H 25 H Blood Pressure 91/56 L 95/62 L 86/56 L Pulse Oximetry 09/08/18 16:00 09/08/18 17:00 09/08/18 18:00 Temperature 98.8 F Pulse Rate 64 80 74 Respiratory Rate 27 H 32 H 23 Blood Pressure 83/62 L 101/70 96/57 L Pulse Oximetry 09/08/18 19:00 09/08/18 20:00 09/08/18 21:00 Temperature 98.0 F Pulse Rate 76 82 72 Respiratory Rate 27 H 19 24 Blood Pressure 96/57 L 92/52 L 87/48 L Pulse Oximetry 09/08/18 21:03 09/08/18 21:38 09/08/18 22:00 Temperature Pulse Rate 78 82 66 Respiratory Rate 24 26 H 22 Blood Pressure 86/51 L 94/60 L 85/54 L Pulse Oximetry 09/08/18 22:25 09/08/18 23:00 09/08/18 23:01 Temperature Pulse Rate 64 62 62 Respiratory Rate 23 18 19 Blood Pressure 91/56 L 75/47 L 81/53 L Pulse Oximetry 09/08/18 23:38 09/09/18 00:00 09/09/18 01:00 Temperature Pulse Rate 64 72 62 Respiratory Rate 24 26 H 24 Blood Pressure 86/59 L 98/64 L 85/59 L Pulse Oximetry 09/09/18 02:00 09/09/18 02:01 09/09/18 02:03 Temperature Pulse Rate 56 L 60 60 Respiratory Rate 18 18 22 Blood Pressure 73/50 L 76/48 L 94/55 L Pulse Oximetry 09/09/18 02:16 09/09/18 02:31 11/12/18 02:47 Temperature Pulse Rate 68 50 L 64 Respiratory Rate 19 29 H 22 Blood Pressure 74/47 L 86/49 L 119/69 Pulse Oximetry 09/09/18 03:00 09/09/18 03:30 09/09/18 03:45 Temperature Pulse Rate 62 64 58 L Respiratory Rate 24 26 H 19 Blood Pressure 118/62 108/70 99/63 L Pulse Oximetry 09/09/18 04:00 09/09/18 04:04 09/09/18 04:15 Temperature Pulse Rate 62 60 60 Respiratory Rate 18 18 18 Blood Pressure 76/52 L 83/59 L 73/48 L Pulse Oximetry 09/09/18 04:30 09/09/18 04:45 09/09/18 05:00 Temperature 98.3 F Pulse Rate 58 L 58 L 58 L Respiratory Rate 17 17 21 Blood Pressure 87/59 L 101/69 85/57 L Pulse Oximetry 09/09/18 05:15 09/09/18 05:30 09/09/18 06:00 Temperature Pulse Rate 68 54 L 58 L Respiratory Rate 28 H 30 H 37 H Blood Pressure 124/92 H 111/63 96/64 L Pulse Oximetry 09/09/18 07:00 09/09/18 07:59 09/09/18 08:00 Temperature Pulse Rate 60 62 58 L Respiratory Rate 18 22 25 H Blood Pressure 90/60 L 86/57 L Pulse Oximetry 92 L 09/09/18 08:01 09/09/18 08:59 09/09/18 09:00 Temperature Pulse Rate 58 L 66 66 Respiratory Rate 18 26 H 26 H Blood Pressure 98/66 L 91/59 L 91/59 L Pulse Oximetry 09/09/18 09:25 09/09/18 09:59 09/09/18 10:00 Temperature Pulse Rate 70 70 Respiratory Rate 27 H 28 H Blood Pressure 99/64 L 99/64 L Pulse Oximetry 96 09/09/18 11:00 Temperature Pulse Rate 56 L Respiratory Rate 23 Blood Pressure 97/67 L Pulse Oximetry 95 Intake & Output 09/08/18 09/09/18 09/09/18 18:59 06:59 18:59 Intake Total 2510 / 2510 3450 / 3450 50 / 50 Output Total 1800 / 1800 4200 / 4200 Balance 710 / 710 -750 / -750 50 / 50 Weight 75.3 kg Intake: IV 1550 / 1550 3450 / 3450 50 / 50 NS Inj 1,000 ML @ 150 mls/hr IV 1000 / 1000 1000 / 1000 .CONT .Q6H40M [facility] Rx#: [id number] Levophed-Dextrose 4 mg/250 ml 100 / 100 Drip 4 mg In 250 ml @ 2 MCG/MIN 7.5 mls/hr IV.SIG TITRATE PRN Rx#:[id number] Zosyn 3.375 GM Premix 50 ML @ 100 / 100 100 / 100 50 / 50 100 mls/hr IV.SIG Q6H [facility] Rx#: [id number] KCl 20 mEq Premix Inj 20 meq In 200 / 200 100 ml @ 50 mls/hr IV.SIG Q2H PRN Rx#:[id number] NS Inj 1,000 ML @ 2000 mls/hr 1999 / 1999 IV.SIG Q30M [facility] Rx#:[id number] Vancomycin Inj 1,000 MG In NS 250 / 250 250 / 250 Inj 250 ML @ 250 mls/hr IV.SIG Q12H [facility] Rx#:[id number] Oral 960 / 960 Output: Urine 2400 / 2400 Urine Amount (Catheter) 1800 / 1800 1800 / 1800 Female External 1800 / 1800 1800 / 1800 Other: Date of Last Bowel Movement 09/06/18 09/06/18 09/09/18 # Bowel Movements 1 Narrative: GENERAL: Well-developed, well-nourished, in no acute distress. alert and quite pleasant female HEENT: Head is normocephalic without any lesions or masses noted. Facial features are symmetric. Eyes: Extraocular muscles are intact. Conjunctivae were clear. NECK: Supple without any masses. Trachea midline no deviation. No JVD, CARDIAC: Regular rhythm, regular rate. S1/S2 are heard. No murmurs gallops or rubs. LUNGS: Clear to auscultation bilaterally. No wheeze, rhonchi or rales. No use of accessory muscles on inspiration or expiration. ABDOMEN: Soft, nontender. Nondistended. Bowel sounds heard in all 4 quadrants. No organomegaly or masses. Negative rebound, negative guarding EXTREMITIES: No edema, pulses are equal bilaterally. No cyanosis or clubbing NEUROLOGY: Mood and affect appear appropriate. Cranial nerves II through XII grossly intact. Moving all extremities, speech is clear - Urinary Catheter Management Female External Cath placed during this visit: no Results - Labs CBC & Chem 7: 09/09/18 03:20 09/09/18 03:20 Laboratory Results - last 24 hr 09/09/18 09/09/18 09/09/18 03:20 03:20 03:20 WBC 6.3 RBC 3.77 L Hgb 10.3 L Hct 32.1 L MCV 85.1 MCH 27.4 MCHC 32.2 RDW 15.6 Plt Count 178 MPV 8.8 Sodium 144 Potassium 3.4 L Chloride 116 H Carbon Dioxide 20.9 L Anion Gap 7 BUN 5 L Creatinine 0.60 Estimated GFR Greater than 89 Random Glucose 91 Calcium 7.5 L Phosphorus 2.3 L Magnesium 1.8 Vancomycin Trough 9.6 Microbiology 09/07/18 12:45 Blood - Peripheral Aerobic Blood Culture - Preliminary No growth in 2 days 09/07/18 12:45 Blood - Peripheral Anaerobic Blood Culture - Preliminary No growth in 2 days 09/07/18 12:50 Blood - Peripheral Aerobic Blood Culture - Preliminary No growth in 2 days 09/07/18 12:50 Blood - Peripheral Anaerobic Blood Culture - Preliminary No growth in 2 days Assessment and Plan - Assessment (1) Systemic inflammatory response syndrome Code(s): R65.10 - Systemic inflammatory response syndrome (SIRS) of non- infectious origin without acute organ dysfunction Status: Acute (2) Febrile illness Code(s): R50.9 - Fever, unspecified Status: Acute (3) Leukocytosis Code(s): D72.829 - Elevated white blood cell count, unspecified Status: Acute - Plan Systemic inflammatory response syndrome, resolved -Patient presented with fever, leukocytosis, hypotension. No infectious source has been identified -Chest x-ray is clear, urinalysis is unremarkable, influenza testing is negative -Blood cultures are negative for 2 days -Viral study workup was all negative -Continue on empirical antibiotics include vancomycin and Zosyn -Continue monitor for any infection Hypotension -Could be secondary to septic shock, however no infection source has been identified. Could be autonomic etiology -Status post 3 L normal saline boluses for blood pressure management -Continue monitor blood pressure and maintain map greater than 65 -Give another liter of fluid today -Start midodrine 5 mg 3 times daily DVT prevention -Sequential compression devices Discharge Planning: Plan discharge home in 24-48 hours depending on patient's response to treatment , blood pressure maintain stability, patient ruled out for any infectious process
[2018-09-10] MEDS: Piperacil/Tazo 3.375 GM Premix 50 ML IV.SIG SCH ×4 (02:13→20:20)
[2018-09-10] MEDS: Vancomycin Inj 1,000 MG in Sodium Chlor 0.9% Inj 250 ML IV.SIG SCH ×2 (04:04→15:02)
[2018-09-10 04:48] LABS: Hematocrit 31.5 % (35.0-46.0); Hemoglobin 10.2 gm/dL (11.6-15.3); Mean Corpuscular HGB Conc 32.2 % (32.0-36.0); Mean Corpuscular Hemoglobin 27.6 pg (27.0-34.0); Mean Corpuscular Volume 85.6 fL (80.0-100.0); Mean Platelet Volume 9.1 fL (7.0-11.0); Platelet Count 204 th/mm3 (150-450); Red Blood Count 3.69 mil/mm3 (4.00-5.30); Red Cell Distribution Width 15.3 % (11.6-17.2); White Blood Count 7.4 th/mm3 (4.0-11.0)
[2018-09-10 04:54] LABS: Chloride 109 meq/L (98-107); Potassium 3.7 meq/L (3.5-5.1); Sodium 141 meq/L (136-145)
[2018-09-10 04:59] LABS: Anion Gap 9 meq/L (5-15); Blood Urea Nitrogen 6 mg/dL (7-18); Calcium 7.9 mg/dL (8.5-10.1); Carbon Dioxide 23.1 meq/L (21.0-32.0); Glucose,Random 92 mg/dL (74-106); Magnesium 2.1 mg/dL (1.5-2.5)
[2018-09-10 05:02] LABS: Glomerular Filtration Rate Greater Than 89 mL/min (>89)
[2018-09-10 05:06] LABS: Phosphorus 3.6 mg/dL (2.5-4.9)
[2018-09-10] MEDS: AUSTEDO 12 MG PO SCH ×2 (08:16→20:20)
[2018-09-10] MEDS: Senna/Docusate Sodium 8.6/50 MG Tablet PO SCH ×2 (08:17→20:20)
[2018-09-10] MEDS: Sertraline 100 MG Tablet PO SCH ×2 (08:17→20:20)
[2018-09-10] MEDS: ARIPiprazole 5 MG Tablet PO SCH (08:20)
--- NOTE | 2018-09-10 09:21 | P.PNIM ---
Subjective Interval history: Patient is sitting upright in bed. She is difficult to understand however is able to communicate. She does not have any complaints this morning. Physical Exam Vital signs: Vital Signs 09/09/18 09:25 09/09/18 09:59 09/09/18 10:00 Temperature Pulse Rate 70 70 Respiratory Rate 27 H 28 H Blood Pressure 99/64 L 99/64 L Pulse Oximetry 96 09/09/18 11:00 09/09/18 12:03 09/09/18 13:00 Temperature 98.0 F Pulse Rate 56 L 72 70 Respiratory Rate 23 31 H 29 H Blood Pressure 97/67 L 91/61 L Pulse Oximetry 95 96 09/09/18 14:00 09/09/18 14:37 09/09/18 15:00 Temperature Pulse Rate 66 66 60 Respiratory Rate 28 H 30 H 30 H Blood Pressure 104/74 104/71 Pulse Oximetry 09/09/18 16:00 09/09/18 17:00 09/09/18 18:00 Temperature 98.4 F 98.4 F 98.2 F Pulse Rate 62 72 78 Respiratory Rate 26 H 24 32 H Blood Pressure 118/75 116/73 109/73 Pulse Oximetry 09/09/18 19:00 09/09/18 19:55 09/09/18 20:00 Temperature 98.1 F Pulse Rate 72 72 Respiratory Rate 24 25 H Blood Pressure 113/71 112/73 Pulse Oximetry 95 09/09/18 21:00 09/09/18 22:07 09/09/18 23:00 Temperature Pulse Rate 62 64 64 Respiratory Rate 24 25 H 24 Blood Pressure 105/76 110/66 93/52 L Pulse Oximetry 09/10/18 00:00 09/10/18 01:00 09/10/18 02:00 Temperature 98 F Pulse Rate 54 L 60 56 L Respiratory Rate 25 H 24 25 H Blood Pressure 110/64 103/62 82/50 L Pulse Oximetry 09/10/18 02:06 09/10/18 03:02 09/10/18 04:00 Temperature 97 F L Pulse Rate 58 L 58 L 58 L Respiratory Rate 19 27 H 19 Blood Pressure 90/65 L 83/55 L 85/55 L Pulse Oximetry 09/10/18 05:00 09/10/18 05:03 09/10/18 06:00 Temperature Pulse Rate 54 L 60 58 L Respiratory Rate 18 18 20 Blood Pressure 64/37 L 95/61 L 86/61 L Pulse Oximetry 09/10/18 07:00 09/10/18 08:00 09/10/18 09:00 Temperature 97.9 F Pulse Rate 50 L 59 L 58 L Respiratory Rate 17 21 24 Blood Pressure 84/52 L 95/58 L 90/55 L Pulse Oximetry Intake & Output 09/09/18 09/10/18 09/10/18 18:59 06:59 18:59 Intake Total 1590 / 1590 920 / 920 Output Total 2450 / 2450 1400 / 1400 Balance -860 / -860 -480 / -480 Weight 72 kg Intake: IV 1350 / 1350 600 / 600 Zosyn 3.375 GM Premix 50 ML @ 100 / 100 100 / 100 100 mls/hr IV.SIG Q6H JOHANNE Rx#: [id number] NS Inj 1,000 ML @ Wide Open IV. 1000 / 1000 SIG BOLUS ONE Rx#:[id number] Vancomycin Inj 1,000 MG In NS 250 / 250 500 / 500 Inj 250 ML @ 250 mls/hr IV.SIG Q8H JOHANNE Rx#:[id number] Oral 240 / 240 320 / 320 Output: Urine Amount (Catheter) 2450 / 2450 1400 / 1400 Female External 2450 / 2450 1400 / 1400 Other: # Incontinent Voids 1 Date of Last Bowel Movement 09/09/18 09/09/18 09/09/18 # Bowel Movements 1 Narrative: General patient in no acute distress HEENT extraocular movements are intact, clear oropharyngeal mucosa Cardiovascular S1-S2 audible, RRR, no murmurs rubs or gallops Respiratory clear to auscultation bilaterally Abdomen soft, nontender, nondistended, normal bowel sounds Extremities no edema 2+ distal pulses in bilateral upper and lower extremities Neuro patient has involuntary movements of bilateral upper and bilateral lower extremities. Sensation is intact bilaterally. Expressive aphasia noted. - Urinary Catheter Management Female External Cath placed during this visit: no Results - Labs CBC & Chem 7: 09/10/18 04:20 09/10/18 04:20 Laboratory Results - last 24 hr 09/08/18 09/09/18 09/10/18 17:10 03:20 04:20 WBC 7.4 RBC 3.69 L Hgb 10.2 L Hct 31.5 L MCV 85.6 MCH 27.6 MCHC 32.2 RDW 15.3 Plt Count 204 MPV 9.1 Sodium Potassium Chloride Carbon Dioxide Anion Gap BUN Creatinine Estimated GFR Random Glucose Calcium Phosphorus Magnesium Vancomycin Trough 9.6 Adenovirus (PCR) Not detected Bordetella holmesii PCR Not detected B. pertussis DNA (PCR) Not detected B. paraper/bronch (PCR) Not detected Human Metapneumovir PCR Not detected Influenza A (RT-PCR) Not detected Influenza A (H1) PCR Not detected Influenza A (H3) PCR Not detected Influenza B (RT-PCR) Not detected Parainfluenza 1 (PCR) Not detected Parainfluenza 2 (PCR) Not detected Parainfluenza 3 (PCR) Not detected Parainfluenza 4 (PCR) Not detected RSV Type A (PCR) Not detected RSV Type B (PCR) Not detected Rhinovirus (PCR) Not detected 09/10/18 04:20 WBC RBC Hgb Hct MCV MCH MCHC RDW Plt Count MPV Sodium 141 Potassium 3.7 Chloride 109 H Carbon Dioxide 23.1 Anion Gap 9 BUN 6 L Creatinine 0.62 Estimated GFR Greater than 89 Random Glucose 92 Calcium 7.9 L Phosphorus 3.6 D Magnesium 2.1 Vancomycin Trough Adenovirus (PCR) Bordetella holmesii PCR B. pertussis DNA (PCR) B. paraper/bronch (PCR) Human Metapneumovir PCR Influenza A (RT-PCR) Influenza A (H1) PCR Influenza A (H3) PCR Influenza B (RT-PCR) Parainfluenza 1 (PCR) Parainfluenza 2 (PCR) Parainfluenza 3 (PCR) Parainfluenza 4 (PCR) RSV Type A (PCR) RSV Type B (PCR) Rhinovirus (PCR) Microbiology 09/07/18 12:45 Blood - Peripheral Aerobic Blood Culture - Preliminary No growth in 2 days 09/07/18 12:45 Blood - Peripheral Anaerobic Blood Culture - Preliminary No growth in 2 days 09/07/18 12:50 Blood - Peripheral Aerobic Blood Culture - Preliminary No growth in 2 days 09/07/18 12:50 Blood - Peripheral Anaerobic Blood Culture - Preliminary No growth in 2 days Assessment and Plan - Assessment (1) Systemic inflammatory response syndrome Code(s): R65.10 - Systemic inflammatory response syndrome (SIRS) of non- infectious origin without acute organ dysfunction Status: Acute (2) Febrile illness Code(s): R50.9 - Fever, unspecified Status: Acute (3) Leukocytosis Code(s): D72.829 - Elevated white blood cell count, unspecified Status: Acute - Plan 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 1. Septic shock possibly secondary to tracheobronchitis Patient presented with the symptoms mentioned above. Now afebrile. Blood cultures are negative, CXR negative, U/A negative. Labs showed a wbc count of 18,000 with left shift. Now normalized. Patient was hypotensive on admission and received aggressive iv fluid resuscitation, no response and needed Pressors. Levophed was titrated off. Systolic blood pressure currently in the 90s on midodrine. Continue iv antibiotics for today. If blood pressure remains stable for today we will move her out of the ICU tomorrow. 2. Huntingtons Disease Continue restoril as needed. Patient takes Austedo at home. Will verify the dosage then restart her home meds. SCDs for DVT prophylaxis
[2018-09-10] MEDS ORDERED: VANCOMYCIN TROUGH OTHER ONE (11:45)
[2018-09-10] MEDS: Vancomycin Inj 1,250 MG in Sodium Chlor 0.9% Inj 250 ML IV.SIG SCH (21:09)
[2018-09-11] MEDS: Piperacil/Tazo 3.375 GM Premix 50 ML IV.SIG SCH ×2 (02:04→07:09)
[2018-09-11 05:04] LABS: Hematocrit 34.8 % (35.0-46.0); Hemoglobin 11.2 gm/dL (11.6-15.3); Mean Corpuscular HGB Conc 32.3 % (32.0-36.0); Mean Corpuscular Hemoglobin 27.6 pg (27.0-34.0); Mean Corpuscular Volume 85.4 fL (80.0-100.0); Platelet Count 232 th/mm3 (150-450); Red Blood Count 4.07 mil/mm3 (4.00-5.30); Red Cell Distribution Width 15.3 % (11.6-17.2)
[2018-09-11 05:10] LABS: Chloride 108 meq/L (98-107); Potassium 3.5 meq/L (3.5-5.1); Sodium 140 meq/L (136-145)
[2018-09-11 05:12] LABS: Calcium 8.2 mg/dL (8.5-10.1)
[2018-09-11 05:13] LABS: Anion Gap 7 meq/L (5-15); Blood Urea Nitrogen 8 mg/dL (7-18); Carbon Dioxide 25.4 meq/L (21.0-32.0); Glucose,Random 88 mg/dL (74-106); Magnesium 2.2 mg/dL (1.5-2.5)
[2018-09-11 05:16] LABS: Glomerular Filtration Rate Greater Than 89 mL/min (>89); Phosphorus 3.8 mg/dL (2.5-4.9)
[2018-09-11 07:22] VITALS: O2SAT 95
[2018-09-11] MEDS: Vancomycin Inj 1,250 MG in Sodium Chlor 0.9% Inj 250 ML IV.SIG SCH (08:28)
[2018-09-11] MEDS: ARIPiprazole 5 MG Tablet PO SCH (08:28)
[2018-09-11] MEDS: Senna/Docusate Sodium 8.6/50 MG Tablet PO SCH (08:28)
[2018-09-11] MEDS: AUSTEDO 12 MG PO SCH (09:32)
[2018-09-11] MEDS: Sertraline 100 MG Tablet PO SCH (09:32)
[2018-09-11] MEDS ORDERED: Sodium Chlor 0.9% Inj 500 ML IV.CONT ONE (10:00)
--- NOTE | 2018-09-11 10:00 | P.DS ---
Date of admission: 09/08/18 06:57 Primary care physician: Shari Jay MD Brief History from admission: 53-year-old unfortunate female with [place]'s disease who presented the hospital for evaluation of fever. Patient is taken care of by her mother and stepfather and they went to check on her today and she was bundled up in a blanket and when they got her out of the blanket they noticed that she was very hot. They took her temperature noticed that she had a fever. They were concerned because in March the patient has similar symptoms and started having significant nausea, vomiting and sepsis. Patient was found to be hypotensive and required pressors and was admitted to the intensive care unit. 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 1. Septic shock possibly secondary to tracheobronchitis Patient presented with the symptoms mentioned above. Now afebrile. Blood cultures are negative, CXR negative, U/A negative. Labs showed a wbc count of 18,000 with left shift. Now normalized. Patient was hypotensive on admission and received aggressive iv fluid resuscitation, no response and needed Pressors. Levophed was titrated off. Systolic blood pressure currently in the 90s on midodrine. Patient has been on 5 days of IV antibiotics. IV antibiotics will be discontinued today and the patient be started on p.o. Levaquin for 4 more days. There is no clear source of infection however given the patient's symptoms on presentation, elevated WBC count, and fever she will be treated with antibiotics for possible pneumonia. Patient will be discharged home today with home health. Patient's systolic blood pressure on discharge is 119. 2. Huntingtons Disease Continue home medications for [place]'s disease. - Time Spent with Patient Total time spent providing and/or coordinating discharge services: Greater than 30 minutes - Quality: VTE Deep Vein Thrombosis/Pulmonary Embolism Present on Admission: No Exam Vital signs: Vital Signs 09/10/18 10:00 09/10/18 10:12 09/10/18 11:00 Temperature Pulse Rate 58 L 72 56 L Respiratory Rate 30 H 31 H 22 Blood Pressure 106/62 100/71 Pulse Oximetry 09/10/18 12:00 09/10/18 13:00 09/10/18 14:00 Temperature 98.0 F Pulse Rate 54 L 62 62 Respiratory Rate 21 23 23 Blood Pressure 114/66 118/69 104/67 Pulse Oximetry 09/10/18 14:58 09/10/18 15:00 09/10/18 16:00 Temperature Pulse Rate 62 62 54 L Respiratory Rate 28 H 28 H 23 Blood Pressure 120/76 120/76 118/70 Pulse Oximetry 09/10/18 17:00 09/10/18 18:53 09/10/18 19:00 Temperature Pulse Rate 64 66 68 Respiratory Rate 26 H 22 30 H Blood Pressure 129/89 124/70 114/72 Pulse Oximetry 09/10/18 19:31 09/10/18 20:00 09/10/18 20:35 Temperature Pulse Rate 58 L Respiratory Rate Blood Pressure 106/68 Pulse Oximetry 94 L 09/10/18 21:00 09/10/18 22:00 09/10/18 23:00 Temperature Pulse Rate 56 L 56 L 60 Respiratory Rate 22 22 26 H Blood Pressure 101/57 L 107/62 105/61 Pulse Oximetry 09/11/18 00:02 09/11/18 01:00 09/11/18 02:02 Temperature 98 F Pulse Rate 62 56 L 56 L Respiratory Rate 18 22 17 Blood Pressure 86/59 L 94/54 L 98/59 L Pulse Oximetry 09/11/18 03:01 09/11/18 04:03 09/11/18 05:00 Temperature 98 F Pulse Rate 54 L 64 62 Respiratory Rate 18 24 22 Blood Pressure 90/51 L 89/64 L 96/54 L Pulse Oximetry 09/11/18 06:00 09/11/18 07:00 09/11/18 07:02 Temperature Pulse Rate 50 L 46 L 46 L Respiratory Rate 25 H 16 15 Blood Pressure 88/55 L 79/48 L 78/47 L Pulse Oximetry 09/11/18 07:06 09/11/18 07:20 09/11/18 07:22 Temperature Pulse Rate 60 56 L Respiratory Rate 24 27 H Blood Pressure 86/49 L 94/67 L Pulse Oximetry 95 09/11/18 08:00 09/11/18 08:28 09/11/18 08:44 Temperature 98.1 F Pulse Rate 62 48 L 72 Respiratory Rate 16 33 H Blood Pressure 90/58 L 104/66 Pulse Oximetry 09/11/18 09:20 Temperature Pulse Rate 62 Respiratory Rate 22 Blood Pressure 92/61 L Pulse Oximetry Intake & Output 09/10/18 09/11/18 09/11/18 18:59 06:59 18:59 Intake Total 100 / 100 582.5 / 582.5 50 / 50 Output Total 300 / 300 600 / 600 Balance -200 / -200 -17.5 / -17.5 50 / 50 Weight 70 kg Intake: IV 100 / 100 362.5 / 362.5 50 / 50 Zosyn 3.375 GM Premix 50 ML @ 100 / 100 100 / 100 50 / 50 100 mls/hr IV.SIG Q6H JOHANNE Rx#: [id number] Vancomycin Inj 1,250 MG In NS 262.5 / 262.5 Inj 250 ML @ 250 mls/hr IV.SIG Q12H JOHANNE Rx#:[id number] Oral 220 / 220 Output: Urine 300 / 300 Urine Amount (Catheter) 600 / 600 Female External 600 / 600 Other: # Urine Diapers 3 Date of Last Bowel Movement 09/09/18 09/09/18 09/09/18 # Bowel Movements 1 0 Narrative: General patient in no acute distress HEENT extraocular movements are intact, clear oropharyngeal mucosa Cardiovascular S1-S2 audible, RRR, no murmurs rubs or gallops Respiratory clear to auscultation bilaterally Abdomen soft, nontender, nondistended, normal bowel sounds Extremities no edema 2+ distal pulses in bilateral upper and lower extremities Neuro patient has involuntary movements of bilateral upper and bilateral lower extremities. Sensation is intact bilaterally. Expressive aphasia noted. Results Procedures completed during hospitalization: None Labs on day of discharge: Labs from last 24 hours 09/11/18 09/11/18 09/10/18 04:24 04:24 12:00 WBC 8.0 RBC 4.07 Hgb 11.2 L Hct 34.8 L MCV 85.4 MCH 27.6 MCHC 32.3 RDW 15.3 Plt Count 232 MPV 9.0 Sodium 140 Potassium 3.5 Chloride 108 H Carbon Dioxide 25.4 Anion Gap 7 BUN 8 Creatinine 0.66 Estimated GFR Greater than 89 Random Glucose 88 Calcium 8.2 L Phosphorus 3.8 Magnesium 2.2 Vancomycin Trough 23.2 H Preliminary micro results at discharge 09/07/18 12:45 Aerobic Blood Culture - Preliminary Blood - Peripheral No growth in 3 days Anaerobic Blood Culture - Preliminary No growth in 3 days 09/07/18 12:50 Aerobic Blood Culture - Preliminary Blood - Peripheral No growth in 3 days Anaerobic Blood Culture - Preliminary No growth in 3 days - Impressions ITS Impressions Chest X-Ray 09/07/18 10:25 CONCLUSION: Negative examination. Discharge Plan - Discharge Disposition Patient Disposition: /Home Health Service - Discharge Condition Condition: Stable - Discharge Order Discharge Orders: Discharge Order (Routine); Ordered 09/11/18 Ordered By: Prosper Mcdonald - Physicians Team Primary Care Provider: Shari Jay Attending Provider: Prosper Mcdonald Other Providers: ; Yomi Mosher MD ; Kenyatta Liriano DO
--- NOTE | 2018-09-11 10:09 | P.DCO ---
- Physical Therapy Order: Evaluate and treat - Speech Therapy Order: To improve: Speech and communication skills - Home Health Nursing Order: Medical education - Case Management Consult Case Management Consult-Home Health: Yes - Certification I have seen patient Angi Brunson on 09/11/18. My clinical findings support the need for the requested home health care services because: Limited mobility due to disease progression, Limited ability to care for self I certify that my clinical findings support that this patient is homebound because: Unsafe to leave home unassisted
[2018-09-11] MEDS ORDERED: levoFLOXacin 750 MG Tablet PO SCH (12:00)
[2018-09-11 12:30] VITALS: TEMP 97.6
[2018-09-11 16:49] VITALS: BP 119/74; PULSE 60; RESP 26
[2018-09-12] MEDS ORDERED: Pharmacy Ordered Lab Info OTHER ONE (08:45)
== END 2018-09-11 18:00 | disposition home health service (06) ==
LOC: PHEDA 09:50 → PHED 09:50 → INTOOBSV 14:08 → OBSVTOIN 14:35 → PHEDA 16:25 → PHICU 17:23
PROVIDERS: ADMIT Hospitalist; ATTEND Hospitalist